=== PATIENT | female | born 1980 | race Caucasian/White ===

== ENCOUNTER 2024-01-22 05:37 | Day surgery (SDC) | payer OTHER ==
[2024-01-13 09:41] LABS: HEMATOCRIT 38.3 % (36.0-45.00); HEMOGLOBIN 13.2 g/dL (12.0-15.00); MEAN CELL VOLUME 91.7 fL (80.00-100.00); MEAN CORPUSCULAR HEMOGLOBIN 31.5 pg (27.00-32.0); MEAN CORPUSCULAR HGB CONC 34.3 g/dl (32.0-36.0); PLATELET COUNT 215 K/uL (150-450); RED BLOOD COUNT 4.18 M/uL (4.00-6.00); RED CELL DISTRIBUTION WIDTH 13.2 % (11.5-14.5)
[2024-01-13 09:42] VITALS: BP 104/71
[2024-01-13 09:50] LABS: PH,URINE 6.5 (5.0-8.0); URINE APPEARANCE Clear; URINE BILIRRUBIN Negative (NEGATIVE); URINE BLOOD Negative; URINE COLOR Yellow; URINE GLUCOSE Negative (NEGATIVE); URINE KETONE Negative (NEGATIVE); URINE LEUKOCYTE Negative; URINE NITRATE Negative; URINE PROTEIN Negative (NEGATIVE); URINE UROBILINOGEN 0.2 E.U./dl
[2024-01-13 09:52] LABS: URINE BACTERIA 64.2 uL (0.0-1933); URINE EPITHELIAL CELLS 3.5 uL (0.0-38.8)
[2024-01-13 09:55] LABS: URINE CAST 0.15 uL (0.0-1.40); URINE RBC 0.9 uL (0.0-20.8); URINE WBC 0.7 uL (0.0-23.2)
[2024-01-13 10:29] LABS: INR 1.01; PARTIAL THROMBOPLASTIN TIME 28.7 SECONDS (22.0-34.0)
[2024-01-13 10:58] LABS: ALBUMIN 4.2 gm/dL (3.4-5.0); CALCIUM 9.8 mg/dL (8.5-10.1); CREATININE SERUM 0.62 mg/dL (0.55-1.02); GFR 104.57; PHOSPHOROUS 2.9 mg/dL (2.5-4.9); POTASSIUM 4.58 mEq/L (3.5-5.1)
[~2024-01-22] VITALS: Ht 172.7 cm; Wt 68.0 kg
[2024-01-22] MEDS ORDERED: CEPHALEXIN500 MG PO (15:29)
[2024-01-22] MEDS ORDERED: CIPROFLOXACIN2.5 ML OTIC (15:29)
== END 2024-01-22 17:20 | disposition home or self-care (01) ==
LOC: CIR.AMB 05:37
PROVIDERS: ATTEND Otolaryngology Otology & Neurotology
DX: H72.01 Central perforation of tympanic membrane, right ear (principal); H90.11 Conductive hearing loss, unilateral, right ear, with unrestricted hearing on the contralateral side

== ENCOUNTER 2024-01-22 07:08 | Emergency (ER) | payer OTHER ==
[~2024-01-22] VITALS: Ht 175.3 cm; Wt 69.9 kg
[2024-01-22 08:38] LABS: HEMATOCRIT 33.6 % (36.0-45.00); HEMOGLOBIN 11.7 g/dL (12.0-15.00); MEAN CELL VOLUME 90.7 fL (80.00-100.00); MEAN CORPUSCULAR HEMOGLOBIN 31.5 pg (27.00-32.0); MEAN CORPUSCULAR HGB CONC 34.7 g/dl (32.0-36.0); PLATELET COUNT 187 K/uL (150-450); RED CELL DISTRIBUTION WIDTH 12.9 % (11.5-14.5)
[2024-01-22 09:04] LABS: ALBUMIN 3.2 gm/dL (3.4-5.0); BILIRUBIN TOTAL 0.48 mg/dL (0.3-1.2); CALCIUM 9.2 mg/dL (8.5-10.1); CREATININE SERUM 0.78 mg/dL (0.55-1.02); GFR 80.23; GLOBULINA 2.9 G/DL (2.4-3.5); POTASSIUM 3.91 mEq/L (3.5-5.1); TOTAL PROTEIN 6.1 gm/dL (6.4-8.2)
[2024-01-22 09:08] LABS: INR 1.02; PARTIAL THROMBOPLASTIN TIME 25.4 SECONDS (22.0-34.0); PROTHROMBIN TIME 11.1 SECONDS (9.0-11.5)
[2024-01-22] MEDS ORDERED: CIPROFLOXACIN2.5 ML OTIC (15:29)
[2024-01-22] MEDS ORDERED: CEPHALEXIN500 MG PO (15:29)
== END 2024-01-22 10:00 | disposition home or self-care (01) ==
LOC: ER 07:08
PROVIDERS: General Practice
DX: R40.20 Unspecified coma (principal); Z20.822 Contact with and (suspected) exposure to COVID-19